=== PATIENT | female | born 1985 | race Caucasian/White ===

== ENCOUNTER 2016-12-11 17:12 | Emergency (ER) | payer OTHER ==
[2016-12-11 18:12] LABS: HEMOGLOBIN 15.4 gm/dl (12.3-15.3); RED BLOOD COUNT 5.09 M/UL (4.00-5.10); WHITE BLOOD COUNT 9.4 K/UL (4.5-11.0)
[2016-12-11 18:31] LABS: BUN/CREATININE RATIO 15 (0-10)
== END 2016-12-11 21:27 | disposition home or self-care (01) ==
LOC: ER1 17:12
PROVIDERS: Family Medicine
DX: R20.0 Anesthesia of skin (principal); R20.2 Paresthesia of skin
CPT/HCPCS: 36415; 70450; 71010; 80053; 82550; 82553; 83874; 84484; 84703; 85025; 93005; 99284

== ENCOUNTER → 2021-04-18 | Outpatient (CLI) | payer OTHER | LOC: KOH-I 08:36 | DX: R94.5 Abnormal results of liver function studies (principal); K76.0 Fatty (change of) liver, not elsewhere classified | CPT/HCPCS: 76705 ==

== ENCOUNTER 2022-05-24 05:40 | Inpatient (IN) | payer OTHER ==
[~2022-05-24 05:40] MED LIST: MACROBID 100 M100 M1 PO
[2022-05-24 06:43] LABS: HEMOGLOBIN 11.7 gm/dl (12.3-15.3); RED BLOOD COUNT 4.07 M/UL (4.00-5.10); WHITE BLOOD COUNT 13.2 K/UL (4.5-11.0)
[2022-05-24] MEDS ORDERED: CLARITIN10 MG PO (09:55)
[2022-05-24] MEDS ORDERED: DAILY VALUE1 EACH PO (09:56)
[2022-05-24] MEDS ORDERED: FOLIC ACID1 MG PO (09:57)
[2022-05-25 06:34] LABS: HEMOGLOBIN 10.7 gm/dl (12.3-15.3)
[2022-05-25] MEDS ORDERED: IBUPROFEN600 MG PO (09:18)
[2022-05-25] MEDS ORDERED: HYDROCODON-ACE1 EAC4 PO (09:18)
[2022-05-25] MEDS ORDERED: DOCUSATE SODIU100 MG PO (09:18)
[2022-05-26] MEDS ORDERED: CYCLOBENZAPRINE10 MG PO (08:36)
== END 2022-05-26 13:02 | disposition home or self-care (01) | DRG 807 ==
LOC: GENOP 05:40 → OB 06:15
PROVIDERS: Obstetrics & Gynecology; ADMIT Obstetrics & Gynecology
PROC: 10E0XZZ Delivery of Products of Conception, External Approach (ICD-10-PCS; principal; 2022-05-24)
PROC: 0KQM0ZZ Repair Perineum Muscle, Open Approach (ICD-10-PCS; 2022-05-24)
PROC: 4A1HXCZ Monitoring of Products of Conception, Cardiac Rate, External Approach (ICD-10-PCS; 2022-05-24)
PROC: 10907ZC Drainage of Amniotic Fluid, Therapeutic from Products of Conception, Via Natural or Artificial Opening (ICD-10-PCS; 2022-05-24)
DX: O33.0 Maternal care for disproportion due to deformity of maternal pelvic bones (principal); Z37.0 Single live birth; O99.52 Diseases of the respiratory system complicating childbirth; Z28.310 Unvaccinated for COVID-19; Z3A.39 39 weeks gestation of pregnancy; F41.9 Anxiety disorder, unspecified; O99.344 Other mental disorders complicating childbirth; M41.9 Scoliosis, unspecified; M79.7 Fibromyalgia; O99.892 Other specified diseases and conditions complicating childbirth; Z88.2 Allergy status to sulfonamides; Z91.013 Allergy to seafood; Z91.030 Bee allergy status; O69.81X0 Labor and delivery complicated by cord around neck, without compression, not applicable or unspecified; O70.1 Second degree perineal laceration during delivery; Z83.3 Family history of diabetes mellitus; Z81.8 Family history of other mental and behavioral disorders; Z82.3 Family history of stroke; Z82.5 Family history of asthma and other chronic lower respiratory diseases
CPT/HCPCS: 36415; 36600; 82800; 85014; 85018; 85025; 85461; 86850; 86900; 86901; J2590; J2790; J3010